=== PATIENT | female | born 1940 | race Caucasian/White ===

== ENCOUNTER → 2018-09-15 | Outpatient (CLI) | payer MEDICARE, OTHER ==
[~2018-09-15] MED LIST: ACETAMINOPHEN-1 EAC1 PO; ASPIRIN325 PO; CELEXA 20 MG TA20 MG PO; COLACE100 MG PO; HYDROCODON-ACE1 EAC7 PO; IMITREX 50 MG T50 MG PO; KEFLEX500 M1 PO; NEURONTIN 300300 M1 PO; OXYCODONE HCL 55 MG PO; PERCOCET 5-3251 EACH PO; REQUIP 1 MG TABL1 M1 PO; REQUIP3 MG PO; TRAMADOL 50 MG50 MG PO; TYLENOL325 MG PO; VAGIFEM10 MCG VAG; XARELTO10 MG PO
== END | disposition home or self-care (01) ==
LOC: M.RAD 08:55
DX: M25.551 Pain in right hip (principal); G89.29 Other chronic pain; Z98.890 Other specified postprocedural states; Z88.2 Allergy status to sulfonamides; Z88.0 Allergy status to penicillin; Z79.899 Other long term (current) drug therapy

== ENCOUNTER → 2018-11-14 | Outpatient (CLI) | payer MEDICARE, OTHER | END | disposition home or self-care (01) | LOC: M.RAD 08:54 | DX: M16.11 Unilateral primary osteoarthritis, right hip (principal); M25.551 Pain in right hip; Z98.890 Other specified postprocedural states; Z88.0 Allergy status to penicillin; Z88.2 Allergy status to sulfonamides; Z79.899 Other long term (current) drug therapy ==

== ENCOUNTER → 2019-02-17 | Outpatient (CLI) | payer MEDICARE, OTHER | END | disposition home or self-care (01) | LOC: M.RAD 08:57 | DX: M25.551 Pain in right hip (principal); G89.29 Other chronic pain; Z98.890 Other specified postprocedural states; Z79.899 Other long term (current) drug therapy; Z88.0 Allergy status to penicillin; Z88.2 Allergy status to sulfonamides; Z79.891 Long term (current) use of opiate analgesic ==